=== PATIENT | female | born 1990 | race African-American/Black ===

== ENCOUNTER 2020-06-20 09:29 | Emergency (ER) | payer OTHER ==
[~2020-06-20] VITALS: Ht 157.5 cm; Wt 105.7 kg
[2020-06-20] MEDS ORDERED: PRENATALS PO (09:52)
[2020-06-20 11:54] LABS: URINE BILIRUBIN NEGATIVE (Negative); URINE BLOOD NEGATIVE (Negative); URINE COLOR YELLOW; URINE GLUCOSE-RANDOM* NEGATIVE (Negative); URINE KETONES NEGATIVE (Negative); URINE LEUKOCYTES-REFLEX NEGATIVE (Negative); URINE NITRITE-REFLEX NEGATIVE (Negative); URINE PROTEIN (DIPSTICK) NEGATIVE (Negative); URINE SPECIFIC GRAVITY 1.025 (1.005-1.035)
[2020-06-20 11:55] LABS: URINE CLARITY SL HAZY
[2020-06-20 13:43] VITALS: BP 86/63
== END 2020-06-20 13:43 | disposition home or self-care (01) ==
LOC: ER 09:29
PROVIDERS: Nurse Practitioner
DX: O26.892 Other specified pregnancy related conditions, second trimester (principal); S39.012A Strain of muscle, fascia and tendon of lower back, initial encounter; M79.10 Myalgia, unspecified site; Z3A.15 15 weeks gestation of pregnancy; W10.9XXA Fall (on) (from) unspecified stairs and steps, initial encounter; Y93.89 Activity, other specified; Y92.89 Other specified places as the place of occurrence of the external cause; Y99.8 Other external cause status